=== PATIENT | female | born 1995 | race Caucasian/White ===

== ENCOUNTER 2017-05-27 16:36 | Emergency (ER) | payer MEDICAID ==
[~2017-05-27] VITALS: Ht 160 cm; Wt 80.7 kg
[2017-05-27 20:42] VITALS: BP 94/63
== END 2017-05-27 20:42 | disposition home or self-care (01) ==
LOC: ED 16:36
DX: R51 Headache (principal); Z90.89 Acquired absence of other organs
CPT/HCPCS: J1100; J1885; Q0162

== ENCOUNTER 2017-09-10 08:09 | Emergency (ER) | payer SELFPAY ==
[~2017-09-10] VITALS: Ht 160 cm; Wt 78.0 kg
[2017-09-10 08:25] VITALS: Ht 160 cm; Wt 78.0 kg
[2017-09-10 10:41] LABS: BILIRUBIN DIRECT 0.07 mg/dL (0.0-0.2); BILIRUBIN TOTAL 0.29 mg/dL (0.20-1.00)
[2017-09-10 10:47] LABS: ALBUMIN 2.9 g/dL (3.4-5.0); TOTAL PROTEIN, SERUM 5.9 g/dL (6.4-8.2)
[2017-09-10 12:52] VITALS: BP 105/49
== END 2017-09-10 12:50 | disposition home or self-care (01) ==
LOC: ED 08:09
PROVIDERS: Emergency Medicine
DX: R11.2 Nausea with vomiting, unspecified (principal); R19.7 Diarrhea, unspecified; R51 Headache
CPT/HCPCS: J1885; J2405; J7030

== ENCOUNTER 2019-01-07 21:27 | Emergency (ER) | payer MEDICAID ==
[~2019-01-07] VITALS: Ht 157.5 cm; Wt 82.1 kg
[2019-01-07 21:31] VITALS: Ht 157.5 cm; Wt 82.1 kg
[2019-01-07 22:38] LABS: BASOPHIL % 0.4 % (0-2); PLATELET COUNT 320 x10^3mcL (130-400); RED CELL DISTRIBUTION WIDTH 13.1 % (11.5-14.5)
[2019-01-07 22:50] LABS: CALCIUM 8.8 mg/dL (8.5-10.1); CARBON DIOXIDE 27.6 mmol/L (21-32); CHLORIDE SERUM 104 mmol/L (98-107); CREATININE SERUM 1.1 mg/dL (0.6-1.0); GFR1 > 60 mL/min; GLUCOSE SERUM 93 mg/dL (74-106); POTASSIUM SERUM 3.6 mmol/L (3.5-5.1); SODIUM SERUM 140 mmol/L (136-145)
[2019-01-07 22:54] LABS: ALBUMIN 3.9 g/dL (3.4-5.0); ALKALINE PHOSPHATASE 88 U/L (46-116); ALT/SGPT 19 U/L (14-59); AST/SGOT 16 U/L (15-37); BILIRUBIN TOTAL 0.22 mg/dL (0.20-1.00); TOTAL PROTEIN, SERUM 7.5 g/dL (6.4-8.2)
[2019-01-08 00:27] VITALS: BP 120/75
== END 2019-01-08 00:27 | disposition home or self-care (01) ==
LOC: ED 21:27
PROVIDERS: Emergency Medicine
DX: R42 Dizziness and giddiness (principal); Z90.89 Acquired absence of other organs
CPT/HCPCS: 36415; J8597

== ENCOUNTER 2019-08-30 15:57 | Emergency (ER) | payer SELFPAY ==
[~2019-08-30] VITALS: Ht 160 cm; Wt 83.5 kg
[2019-08-30 17:13] VITALS: Ht 160 cm; Wt 83.5 kg
[2019-08-30 18:54] LABS: microscopic required? YES; urine erythrocyte NEGATIVE (NEGATIVE)
[2019-08-30 19:05] LABS: BASOPHIL % 0.5 % (0-2); PLATELET COUNT 307 x10^3mcL (130-400); RED CELL DISTRIBUTION WIDTH 13.7 % (11.5-14.5)
[2019-08-30 19:18] LABS: CALCIUM 9.1 mg/dL (8.5-10.1); CHLORIDE SERUM 102 mmol/L (98-107); CREATININE SERUM 0.7 mg/dL (0.6-1.0); GFR1 > 60 mL/min; GLUCOSE SERUM 93 mg/dL (74-106); POTASSIUM SERUM 3.7 mmol/L (3.5-5.1); SODIUM SERUM 138 mmol/L (136-145)
[2019-08-30 19:23] LABS: ALKALINE PHOSPHATASE 96 U/L (46-116); ALT/SGPT 18 U/L (14-59); AST/SGOT 9 U/L (15-37); BILIRUBIN TOTAL 0.28 mg/dL (0.20-1.00); LIPASE 62 IU/L (73-393); TOTAL PROTEIN, SERUM 7.9 g/dL (6.4-8.2)
[2019-08-30 21:08] VITALS: BP 108/58
== END 2019-08-30 21:06 | disposition home or self-care (01) ==
LOC: ED 15:57
PROVIDERS: Emergency Medicine
DX: R10.13 Epigastric pain (principal); R19.7 Diarrhea, unspecified; R11.10 Vomiting, unspecified; Z90.89 Acquired absence of other organs
CPT/HCPCS: 36415; J1885; Q0092